=== PATIENT | female | born 1970 | race Two or more races ===

== ENCOUNTER 2022-02-26 21:19 | Emergency (ER) | payer MEDICAID, OTHER ==
[~2022-02-26] VITALS: Ht 157.5 cm; Wt 89.8 kg
[2022-02-26] MEDS ORDERED: ACETAMINOPHEN 325 MG TAB PO ONE (21:45)
[2022-02-27 00:20] VITALS: BP 143/78
== END 2022-02-27 00:56 | disposition home or self-care (01) ==
LOC: EDBD 21:19 → ER 21:19
DX: M25.522 Pain in left elbow (principal); M25.562 Pain in left knee; M54.50 Low back pain, unspecified; V49.9XXA Car occupant (driver) (passenger) injured in unspecified traffic accident, initial encounter; Y93.89 Activity, other specified; Y92.410 Unspecified street and highway as the place of occurrence of the external cause; Y99.8 Other external cause status
CPT/HCPCS: 29105; 72131; 73090; 73560